=== PATIENT | male | born 1975 | race Caucasian/White ===

== ENCOUNTER → 2020-01-19 | Outpatient (CLI) | payer OTHER ==
[~2020-01-19] MED LIST: ACET500 PO; AMOX500 PO; Bactrim Ds Tab1 EACH PO; CEPH500 PO; CIPR500 PO; CRUTCH4 USE; CYCL10 PO; Cleocin HCl300 MG PO; FENO48 PO; GUAPSEER PO; HYDACE10B PO; HYDACE5 PO; HYDACE7.5 PO; LORA10ER; MORP15ER PO; MULTIVITAMIN; MULVITMIND PO; NAPR500 PO; NAPR500ERA PO; NIAC500ER; OXYACE5T PO; PROM25 PO; PROM25S PR; SULTRIDS PO; TRAM50 PO; Ultram50 MG PO
[2020-01-21 08:09] LABS: CHLAMYDIA BY NAA Negative (Negative); GONOCOCCUS BY NAA Negative (Negative); TRICH VAG BY NAA Negative (Negative)
== END ==
LOC: LAB SHORT 14:00 → LAB EV 14:00
PROVIDERS: Nurse Practitioner Family
DX: Z20.2 Contact with and (suspected) exposure to infections with a predominantly sexual mode of transmission (principal)
CPT/HCPCS: 87491; 87591; 87661

== ENCOUNTER 2020-06-14 19:09 | Emergency (ER) | payer OTHER ==
[~2020-06-14] VITALS: Ht 190.5 cm; Wt 120.2 kg
[2020-06-14 20:45] LABS: BASOPHILS ABSOLUTE AUTO 0.05 K/mm3 (0.00-0.23); BASOPHILS PERCENT AUTO 1 % (0-2); EOSINOPHILS ABSOLUTE AUTO 0.09 K/mm3 (0.00-0.68); EOSINOPHILS PERCENT AUTO 1 % (0-6); Hemoglobin 17.1 g/dL (13.5-17.5); IMMATURE GRAN ABSOLUTE AUTO 0.06 K/mm3 (0.00-0.10); IMMATURE GRAN PERCENT AUTO 1 % (0-1); LYMPHOCYTES ABSOLUTE AUTO 1.74 K/mm3 (0.84-5.20); LYMPHOCYTES PERCENT AUTO 17 % (21-46); MONOCYTES ABSOLUTE AUTO 1.29 K/mm3 (0.16-1.47); MONOCYTES PERCENT AUTO 13 % (4-13); Mean Corpuscular HGB 29.8 pg (26.0-34.0); Mean Corpuscular HGB Conc 34.9 g/dL (31.5-36.5); Mean Corpuscular Volume 86 fL (80-100); Mean Platelet Volume 10.5 fL (9.1-12.4); NEUTROPHILS ABSOLUTE AUTO 6.92 K/mm3 (1.96-9.15); NEUTROPHILS PERCENT AUTO 68 % (41-73); Platelet Count 194 K/mm3 (150-400); RDW Coefficient Variation 13.3 % (11.7-14.2); RDW Standard Deviation 41.6 fL (35.1-46.3); Red Blood Cell Count 5.73 M/mm3 (4.30-5.90); White Blood Cell Count 10.15 K/mm3 (4.00-11.30)
[2020-06-14 21:06] LABS: Alanine Aminotransfer (ALT/SGP 42 U/L (12-78); Albumin/Globulin Ratio 1.3 (0.8-1.8); Alk Phos 49 U/L (50-136); Anion Gap 3 mmol/L (6-16); Aspartate Aminotrans (AST/SGOT 31 U/L (12-37); Blood Urea Nitrogen 17 mg/dL (8-24); Bun/Creatinine Ratio 16.7 (12.0-20.0); CO2, Blood 27 mmol/L (21-32); Calcium, Blood 8.8 mg/dL (8.5-10.1); Chloride, Blood 108 mmol/L (98-108); Creatinine, Blood 1.02 mg/dL (0.60-1.20); Glomerular Filtration Rate >60 (60-); Glucose, Blood 95 mg/dL (70-99); Potassium, Blood 4.1 mmol/L (3.5-5.5); Sodium, Blood 138 mmol/L (136-145)
[2020-06-14] MEDS ORDERED: CEPH500 PO (21:54)
[2020-06-14] MEDS ORDERED: Bactrim Ds Tab1 EACH PO (21:54)
== END 2020-06-14 22:12 | disposition home or self-care (01) ==
LOC: ER 19:09
PROVIDERS: Physician Assistant
DX: L03.114 Cellulitis of left upper limb (principal); Z79.899 Other long term (current) drug therapy; Z87.891 Personal history of nicotine dependence
CPT/HCPCS: 36415; 80053; 85025; 99283; A9270

== ENCOUNTER 2020-07-27 23:39 | Emergency (ER) | payer OTHER ==
[~2020-07-27] VITALS: Ht 190.5 cm; Wt 121.6 kg
== END 2020-07-28 00:53 | disposition home or self-care (01) ==
LOC: ER 23:39
DX: S46.211A Strain of muscle, fascia and tendon of other parts of biceps, right arm, initial encounter (principal); Z87.891 Personal history of nicotine dependence; Y04.0XXA Assault by unarmed brawl or fight, initial encounter
CPT/HCPCS: 99283; A9270

== ENCOUNTER 2020-07-30 10:16 | Day surgery (SDC) | payer OTHER ==
[~2020-07-30] VITALS: Ht 190.5 cm; Wt 126.8 kg
[2020-07-30] MEDS ORDERED: THERA-D2000 UNIT PO (11:21)
[2020-07-30] MEDS ORDERED: FENO48 PO (11:25)
[2020-07-30] MEDS ORDERED: LISI20 PO (11:27)
[2020-07-30] MEDS ORDERED: NAPR500ERA PO (11:28)
[2020-07-30] MEDS ORDERED: DHEA 2525 MG (11:28)
== END 2020-07-30 14:20 | disposition home or self-care (01) ==
LOC: ORSCSDS 10:16
PROVIDERS: Orthopaedic Surgery
PROC: 0LM30ZZ Reattachment of Right Upper Arm Tendon, Open Approach (ICD-10-PCS; principal; 2020-07-30 12:00)
DX: S46.211A Strain of muscle, fascia and tendon of other parts of biceps, right arm, initial encounter (principal); E78.5 Hyperlipidemia, unspecified; I10 Essential (primary) hypertension; Z79.899 Other long term (current) drug therapy
CPT/HCPCS: C1713; J0171; J0690; J1100; J1885; J2250; J2405; J2704; J3010

== ENCOUNTER 2020-08-19 07:17 | Day surgery (SDC) | payer OTHER ==
[~2020-08-19] VITALS: Ht 190.5 cm; Wt 124.5 kg
[~2020-08-19 07:17] MED LIST changes: +DHEA 2525 MG; +LISI20 PO; +THERA-D2000 UNIT PO
--- NOTE | 2020-08-19 09:00 | NUR ---
08/19/20 0900 Mamta Wang A WELL APPROXIMATED, HEALING, INCISION PRESENT TO RIGHT FOEREARM (PT HAD SURGERY ON 07/30/20).
--- NOTE | 2020-08-20 10:48 | NUR ---
08/20/20 1048 Edwige Morley S LATE ENTRY FOR 1055 (COMPUTER WAS LOCKED OUT TO BE ABLE TO CHART ON 08/19/20. PT. WITH SATS DOWN TO 87% ON RA. PT. ENC. TO TAKE DEEP BREATHS. PT. STILL C/O PAIN RATING A "9" BUT SINCE PT. DOZES AT TIMES & HIS SATS GO DOWN WILL HOLD OFF ON FENTANYL SINCE NORCO PAIN PILLS WERE GIVEN. ICE INTACT & RIGHT ARM SLING INTACT WITH RIGHT ARM ELEVATED UP ON PILLOW. PT. DID VERBALIZE THAT HIS PAIN WAS GETTING BETTER. 1115 ASKED PT. IF HE WAS READY TO GO HOME. PT. WANTED A LITTLE LONGER TO STAY AT [facility]. V.S.S. 1135 IV WAS DISCONTINUED BY [facility].EXM WITH 150LTC, SITE WRAPPED WITH COBAN, SITE WNL. PT. WAS DISCHARGED TO HOME AT 1145. ALSO WAS AWAITING A PHONE CALL BACK FROM DR. MAYNARD'S OFFICE ON SHOWERING ORDERS AFTER HIS DRESSING WAS REMOVED. DR. MAYNARD'S OFFICE WAS CALLED AGAIN BY [facility].NSC & SPOKE WITH HARSHAL AT 1151 & PER HARSHAL PT. IS OK TO SHOWER WITHOUT COVERING WOUND WHEN DRESSING/SPLINT IS REMOVED IN 4-5 DAYS. PT. WAS CALLED BY PT. DIDN'T ANSWER HIS PHONE SO LEFT MESSAGE FOR PT. ABOUT SHOWERING AT HOME ABOVE NOTED.
== END 2020-08-19 11:45 | disposition home or self-care (01) ==
LOC: ORSCSDS 07:17
PROVIDERS: Orthopaedic Surgery
PROC: 0LM30ZZ Reattachment of Right Upper Arm Tendon, Open Approach (ICD-10-PCS; principal; 2020-08-19 08:45)
DX: S46.211A Strain of muscle, fascia and tendon of other parts of biceps, right arm, initial encounter (principal); I10 Essential (primary) hypertension; E66.9 Obesity, unspecified; Z68.34 Body mass index [BMI] 34.0-34.9, adult; Z79.899 Other long term (current) drug therapy
CPT/HCPCS: A9270; C1713; J0690; J1100; J1885; J2250; J2405; J2704; J2795; J3010; J7120

== ENCOUNTER → 2022-01-22 | Outpatient (CLI) | payer OTHER ==
[2022-01-22 11:16] LABS: BASOPHILS ABSOLUTE AUTO 0.05 K/mm3 (0.00-0.23); BASOPHILS PERCENT AUTO 1 % (0-2); EOSINOPHILS ABSOLUTE AUTO 0.15 K/mm3 (0.00-0.68); EOSINOPHILS PERCENT AUTO 3 % (0-6); Hematocrit 49.5 % (37.0-53.0); Hemoglobin 17.4 g/dL (13.5-17.5); IMMATURE GRAN ABSOLUTE AUTO 0.05 K/mm3 (0.00-0.10); IMMATURE GRAN PERCENT AUTO 1 % (0-1); LYMPHOCYTES ABSOLUTE AUTO 1.22 K/mm3 (0.84-5.20); LYMPHOCYTES PERCENT AUTO 26 % (21-46); MONOCYTES ABSOLUTE AUTO 0.63 K/mm3 (0.16-1.47); MONOCYTES PERCENT AUTO 13 % (4-13); Mean Corpuscular HGB 29.6 pg (26.0-34.0); Mean Corpuscular HGB Conc 35.2 g/dL (31.5-36.5); Mean Corpuscular Volume 84 fL (80-100); Mean Platelet Volume 10.1 fL (9.1-12.4); NEUTROPHILS ABSOLUTE AUTO 2.59 K/mm3 (1.96-9.15); NEUTROPHILS PERCENT AUTO 55 % (41-73); Platelet Count 183 K/mm3 (150-400); RDW Coefficient Variation 12.9 % (11.7-14.2); RDW Standard Deviation 38.6 fL (35.1-46.3); Red Blood Cell Count 5.88 M/mm3 (4.30-5.90); White Blood Cell Count 4.69 K/mm3 (4.00-11.30)
[2022-01-22 11:26] LABS: Albumin, Blood 3.9 g/dL (3.4-5.0); Albumin/Globulin Ratio 1.3 (0.8-1.8); Bilirubin, Total 1.2 mg/dL (0.1-1.0); Bun/Creatinine Ratio 16.7 (12.0-20.0); Calcium, Blood 8.5 mg/dL (8.5-10.1); Creatinine, Blood 0.96 mg/dL (0.60-1.20); Potassium, Blood 4.3 mmol/L (3.5-5.5); Total Protein, Blood 6.9 g/dL (6.4-8.2)
== END | disposition home or self-care (01) ==
LOC: LAB 11:11 → LAB SHORT 11:11
PROVIDERS: General Practice
DX: R10.9 Unspecified abdominal pain (principal)
CPT/HCPCS: 80053; 82150; 85025

== ENCOUNTER → 2022-12-25 | Outpatient (CLI) | payer OTHER ==
[2022-12-25 14:11] LABS: BASOPHILS ABSOLUTE AUTO 0.04 K/mm3 (0.00-0.23); BASOPHILS PERCENT AUTO 0 % (0-2); EOSINOPHILS ABSOLUTE AUTO 0.09 K/mm3 (0.00-0.68); EOSINOPHILS PERCENT AUTO 1 % (0-6); Hematocrit 50.8 % (37.0-53.0); Hemoglobin 18.3 g/dL (13.5-17.5); IMMATURE GRAN ABSOLUTE AUTO 0.04 K/mm3 (0.00-0.10); IMMATURE GRAN PERCENT AUTO 0 % (0-1); LYMPHOCYTES PERCENT AUTO 13 % (21-46); MONOCYTES ABSOLUTE AUTO 1.23 K/mm3 (0.16-1.47); MONOCYTES PERCENT AUTO 14 % (4-13); Mean Corpuscular HGB 30.1 pg (26.0-34.0); Mean Corpuscular Volume 84 fL (80-100); Mean Platelet Volume 10.3 fL (9.1-12.4); NEUTROPHILS ABSOLUTE AUTO 6.39 K/mm3 (1.96-9.15); NEUTROPHILS PERCENT AUTO 71 % (41-73); Platelet Count 166 K/mm3 (150-400); RDW Coefficient Variation 13.4 % (11.7-14.2); RDW Standard Deviation 40.1 fL (35.1-46.3); Red Blood Cell Count 6.07 M/mm3 (4.30-5.90); White Blood Cell Count 8.99 K/mm3 (4.00-11.30)
== END | disposition home or self-care (01) ==
LOC: LAB SHORT 14:08 → LAB 14:08
PROVIDERS: Family Medicine
DX: R13.19 Other dysphagia (principal); M79.89 Other specified soft tissue disorders
CPT/HCPCS: 84443; 85025

== ENCOUNTER → 2023-03-02 | Outpatient (CLI) | payer OTHER ==
[2023-03-02 19:51] LABS: BASOPHILS ABSOLUTE AUTO 0.06 K/mm3 (0.00-0.23); BASOPHILS PERCENT AUTO 1 % (0-2); EOSINOPHILS ABSOLUTE AUTO 0.11 K/mm3 (0.00-0.68); EOSINOPHILS PERCENT AUTO 2 % (0-6); Hematocrit 49.3 % (37.0-53.0); Hemoglobin 17.3 g/dL (13.5-17.5); IMMATURE GRAN ABSOLUTE AUTO 0.05 K/mm3 (0.00-0.10); IMMATURE GRAN PERCENT AUTO 1 % (0-1); LYMPHOCYTES PERCENT AUTO 30 % (21-46); MONOCYTES ABSOLUTE AUTO 0.77 K/mm3 (0.16-1.47); MONOCYTES PERCENT AUTO 13 % (4-13); Mean Corpuscular HGB 30.2 pg (26.0-34.0); Mean Corpuscular HGB Conc 35.1 g/dL (31.5-36.5); Mean Corpuscular Volume 86 fL (80-100); Mean Platelet Volume 11.1 fL (9.1-12.4); NEUTROPHILS ABSOLUTE AUTO 3.18 K/mm3 (1.96-9.15); NEUTROPHILS PERCENT AUTO 53 % (41-73); Platelet Count 192 K/mm3 (150-400); RDW Coefficient Variation 14.6 % (11.7-14.2); RDW Standard Deviation 44.9 fL (35.1-46.3); Red Blood Cell Count 5.73 M/mm3 (4.30-5.90); White Blood Cell Count 5.97 K/mm3 (4.00-11.30)
[2023-03-05 03:18] LABS: TESTOSTERONE,PERCENTAGE FREE 2.5 % (1.6-2.9)
== END ==
LOC: LAB 15:57 → LAB SHORT 15:57
PROVIDERS: Nurse Practitioner Family
DX: K62.5 Hemorrhage of anus and rectum (principal); R79.89 Other specified abnormal findings of blood chemistry
CPT/HCPCS: 84270; 84402; 84403; 85025

== ENCOUNTER → 2024-05-16 | Outpatient (CLI) | payer OTHER ==
[2024-05-16 13:06] LABS: BASOPHILS ABSOLUTE AUTO 0.06 K/mm3 (0.00-0.23); BASOPHILS PERCENT AUTO 1 % (0-2); EOSINOPHILS ABSOLUTE AUTO 0.14 K/mm3 (0.00-0.68); EOSINOPHILS PERCENT AUTO 3 % (0-6); Hematocrit 48.2 % (37.0-53.0); Hemoglobin 17.3 g/dL (13.5-17.5); IMMATURE GRAN ABSOLUTE AUTO 0.05 K/mm3 (0.00-0.10); IMMATURE GRAN PERCENT AUTO 1 % (0-1); LYMPHOCYTES ABSOLUTE AUTO 1.44 K/mm3 (0.84-5.20); LYMPHOCYTES PERCENT AUTO 26 % (21-46); MONOCYTES ABSOLUTE AUTO 0.78 K/mm3 (0.16-1.47); MONOCYTES PERCENT AUTO 14 % (4-13); Mean Corpuscular HGB 29.6 pg (26.0-34.0); Mean Corpuscular HGB Conc 35.9 g/dL (31.5-36.5); Mean Corpuscular Volume 83 fL (80-100); Mean Platelet Volume 10.4 fL (9.1-12.4); NEUTROPHILS ABSOLUTE AUTO 3.09 K/mm3 (1.96-9.15); NEUTROPHILS PERCENT AUTO 56 % (41-73); Platelet Count 193 K/mm3 (150-400); RDW Standard Deviation 40.9 fL (35.1-46.3); Red Blood Cell Count 5.84 M/mm3 (4.30-5.90); White Blood Cell Count 5.56 K/mm3 (4.00-11.30)
[2024-05-16 15:55] LABS: Albumin, Blood 4.3 g/dL (3.4-5.0); Albumin/Globulin Ratio 1.5 (0.8-1.8); Alk Phos 51 U/L (50-136); Anion Gap 10 mmol/L (3-11); Aspartate Aminotrans (AST/SGOT 41 U/L (12-37); Bilirubin, Total 1.5 mg/dL (0.1-1.0); Blood Urea Nitrogen 23 mg/dL (8-24); Bun/Creatinine Ratio 22.5 (12.0-20.0); CHOL/HDL RATIO 4.2; CO2, Blood 27 mmol/L (21-32); Chloride, Blood 105 mmol/L (98-108); Cholesterol 106 mg/dL (50-200); Creatinine, Blood 1.02 mg/dL (0.60-1.20); Globulin, Blood 2.9 g/dL (2.2-4.0); Glomerular Filtration Rate 91 (60-); Glucose, Blood 112 mg/dL (70-99); HDL Cholesterol 25 mg/dL (>39); Low Density Lipoprotein Chol 24 mg/dL (0-110); Sodium, Blood 138 mmol/L (136-145); Total Protein, Blood 7.2 g/dL (6.4-8.2); Triglycerides 285 mg/dL (30-160); Very Low Density Lipoprot Chol 57 mg/dL (6-32)
[2024-05-16 16:04] LABS: Alanine Aminotransfer (ALT/SGP 49 U/L (12-78)
[2024-05-22 17:30] LABS: TESTOSTERONE, FREE BY DIALYSIS 62.2 pg/mL (47.0-244.0); TESTOSTERONE, TOTAL MASS SPEC 270.4 ng/dL (300.0-890.0)
== END | disposition home or self-care (01) ==
LOC: LAB SHORT 11:47 → LAB 11:47
PROVIDERS: Nurse Practitioner Family
DX: Z00.00 Encounter for general adult medical examination without abnormal findings (principal)
CPT/HCPCS: 80053; 80061; 83036; 84402; 84403; 84443; 85025